=== PATIENT | female | born 1985 ===

== ENCOUNTER 2023-12-26 16:21 | Outpatient (REF) | payer BC, SELFPAY | END 2023-12-26 16:22 | disposition home or self-care (01) | LOC: NCHCN 16:21 | PROVIDERS: Visit Provider Family Medicine | DX: H60.8X2 Other otitis externa, left ear | CPT/HCPCS: 87070 ==

== ENCOUNTER 2024-02-22 15:22 | Outpatient (REF) | payer BC, SELFPAY ==
--- NOTE | 2024-02-22 12:30 | PAPFT_PTH ---
PATIENT: Basia Arceo LOC: [facility] U#:[id number] AGE/SX: 39/F ROOM: RE02/22/[address]: Margarita Bobo : 1985 BED: DIS: 02/22/2024 SPEC #: [id number] RECD: 02/22/24 16:54 STATUS: DEBORAH REQ #: [id number] OMER: 02/22/24 12:[address]: Margarita Bobo DEPT: [facility] Cytology RECD BY: Shahnaz Iyer Tissues: 1 - CX/ENDOCX FOR PAP SMEARS Procedures: PAP THIN PREP/[facility] Screening HPV DNA PROBE Comments: [id number] (HPV 16 & 18/45)
--- OUTSIDE RECORDS SUMMARY | 2024-02-22 15:25 | XMS_ITS | Continuity of Care Document ---
Author Organization [facility] Address [address] [place] [address] Assessment No assessment recorded. Plan of Treatment Reminders Order Date Submit Date Provider Last Modified By Organization Details Last Modified Time Details Appointments Annual Wellness Exam 40 2023 11:50A M Not available Not available Not available Annual Wellness Exam 40 2024 11:00A M Not available Not available Not available Lab gram stain - obtained in office [address] Laboratory (Registration ), [address] [place] [address] [place], [address], 01/03/2024 10:09:58 culture, ear 2023 024 [facility] (Registration ), [address] [place] [address] [place], [address], 01/01/2024 09:57:37 Referral None recorded. Procedures None recorded. Surgeries None recorded. Imaging None recorded. Medication Orders ofloxacin 0.3 % ear drops 2023 024 [id number], [address] [place] [address], [phone], 12/26/2023 09:19:27 Patient TargetsNo targets recorded. Patient Instructions Encounter Date Encounter Id Patient Instructions Last Modified By Organization Details Last Modified Time 12/26/2023 [id number] ofloxacin ear drops daily 5 days. Call if issues with affordability [email or web address] Not available 12/26/2023 09:20:11 Reason for Referral None Reported. Problems Name Status Onset Date Resolution Date Notes Provider Name and Address Organization Details Recorded Time Family history of breast cancer Active 09/19/[address], [facility] [address], [facility] 09/19/2023 12:07:07 Vegetarian diet Active 09/19/[address], [facility] [address], [facility] 09/19/2023 12:09:14 Cough Active 09/19/[address], [facility] [id number] [place] [address] 09/19/2023 15:41:18 Fatigue Active 09/19/[address], [facility] [id number] [place] [address] 09/19/2023 15:43:00 Otitis externa Active 12/17/[address], [facility] [id number] [place] [address] 12/17/2023 13:39:35 Problem Notes None recorded. Procedures Surgical History Date Name Laterality Status Provider Name and Address Organization Details Recorded Time 4 Cerumen Removal completed [address] Dr, [facility] [address], [facility] 12/11/2023 10:47:46 9 Date of Last Pap Smear completed Jodie Ballard RN null, [facility] 08/07/2023 13:57:55 Imaging Results None recorded. Procedure Notes None recorded. Medical Equipment None Reported. Allergies No known drug allergies Medications Name Sig Start Date Stop Date Status Note LastModified by Organization Details LastModified Time ofloxacin 0.3 % ear drops INSTILL 10 DROPS TO AFFECTED EAR DAILY active Not Available Not Available No t Available clotrimazol e 1 % topical solution RINSE EXTERNAL EAR; FILL EAR CANAL WITH SOLUTION AND PLUG WITH COTTON BALL. REPEAT DAILY UNTIL PAIN GONE 02/21 completed Not Available Not Available Not Available neomycin-po lymyxin-hyd rocort 3.5 mg-10,000 unit/mL-1 % ear drops,susp INSTILL 4 DROPS INTO THE AFFECTED EAR(S) THREE TIMES A DAY 02/21 completed Not Available Not Available Not Available Vitals Date Recorded Body height Body temperature Oxygen saturation Oxygen saturation in Arterial blood by Pulse oximetry Heart rate Body mass index (BMI) Body weight Systolic blood pressure Diastolic blood pressure Provider Name and Address Organization Details Last Updated DateTime 4 161.29 cm 97.6 [degF] 98 % 98 % 74 /min 23.9 kg/m2 06387.1 5 g 110 mm[Hg] 70 mm[Hg] PIERRE MELCHOR MA [facility] 4 09:03:38 Social History Question Answer Notes LastModified by Organizat ion Details LastModified Time Tobacco Smoking Status Never Smoker Jodie Ballard RN [facility], [facility] 09/19/2023 11:56:04 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 (Female Patients Only) No [email or web address] Information not available 02/22/2024 How Often Does Anyone, Including Family, Physically Hurt You? Never Information not available 09/19/2023 How Often Does Anyone, Including Family, Insult Or Talk Down To You? Never Information no t available 09/19/2023 How Often Does Anyone, Including Family, Threaten You With Harm? Never Information not available 09/19/2023 How Often Does Anyone, Including Family, Scream Or Curse At You? Never Information not available 09/19/2023 Within The Past 12 Months, You Worried That Your Food Would Run Out Before You Got Money To Buy More. Never True Information n ot available 09/19/2023 Within The Past 12 Months, The Food You Bought Just Didn't Last And You Didn't Have Money To Get More. Never True Information not available 09/19/2023 How Hard Is It For You To Pay For The Very Basics Like Food, Housing, Medical Care, And Heating? Would You Say It Is: Not Hard At All Information not available 09/19/2023 In The Past 12 Months, Has Lack Of Reliable Transportation Kept You From Medical Appointments, Meetings, Work Or From Getting Things Needed For Daily Living? No Information not available 09/19/2023 What Is Your Housing Situation Today? I Have Housing. Information not available 09/19/2023 How Often In The Past Year Have You Used Marijuana (including Smoking, Vaping, Dabbing, Or Edibles)? Never Information not available 09/19/2023 How Often In The Past Year Have You Used Prescription Medications That Were Not Prescribed To You? Never Information not available 09/19/2023 How Often In The Past Year Have You Taken Your Own Prescription Medication More Than The Way It Was Prescribed Or For Different Reasons Than Its Intended Purpose? Never Information not available 09/19/2023 How Often In The Past Year Have You Used Other Drugs (for Example, Heroin, Cocaine, Meth, Salvia, Inhalants)? Never Information not available 09/19/2023 Have You Ever Used IV Drugs? No Information not available 09/19/2023 Date Of Most Recent SBINS 09/19/2023 Information not available 09/19/2023 What Was The Date Of Your Most Recent Tobacco Screening? 02/22/2024 [email or web address] Information n ot available 02/22/2024 Has Tobacco Cessation Counseling Been Provided? Yes Information not available 09/19/2023 On What Date Was Tobacco Cessation Counseling Provided? 12/11/2023 [email or web address] Information not available 12/11/2023 Do You Or Have You Ever Used Any Other Forms Of Tobacco Or Nicotine? No Information not available 09/19/2023 Sex: Unknown Functional Status None recorded. Mental Status None recorded. Family History Relationship Description Onset Age of this Age Resolved Age Notes Mother Malignant tumor of breast 58 Brother Anemia Father Hypercholesterolemia Father Hypertensive disorder Medical History No medical history recorded. Gynecological History Statement/Question Response Date of Last Pap Smear 10/04/2018 Obstetrics History GPAL:G 0 P 0 0 0 0 Immunizations Vaccine Type Date Status Provider Name and Address Organization Details Recorded Time MMR 10/04/2018 completed Jodie Ballard RN null, [facility] 08/07/2023 13:58:27 Tdap 10/03/2017 completed Jodie Ballard RN null, [facility] 08/07/2023 13:58:52 SARS-COV-2 (COVID-19) vaccine, UNSPECIFIED 04/28/2023 completed Joide Ballard RN null, [facility] 09/18/2023 12:36:27 Past Encounters Encounter ID Performer Location Encounter Start Date Encounter Closed Date Diagnosis/Indication Diagnosis SNOMED-CT Code [id number] SOCO FAY [address] [address] 12/11/2023 10:08:27 12/11/2023 10:46:08 Impacted cerumen in left ear 181373937932810 1 [id number] JOSE SANTANA MD [address] [address] 12/17/2023 13:08:22 12/17/2023 13:39:56 Otitis externa [id number] JOSE SANTANA MD [address] [address] 12/26/2023 08:52:25 12/26/2023 09:23:35 Otitis externa [id number] Health Concerns Section Related Observation LastModified by Organization Detai ls LastModified Time None Recorded Concern Status LastModified by Organization Details LastModified Time None Recorded Payers Encounter Date Sequence Insurance Name Policy Number Policy Palacio Covered Member ID Palacio Member ID Guarantor Name 12/26/2023 1 [place] [employer] [place] Basia Arceo [id number] Basia Arceo Notes Date Note Type Note Provider Name and Address Organization Details Recorded Time 12/26/2023 text/html HPI Notes: Kayeелена nt here requesting follow-up for her recent diagnosis of left otitis externa. Is been 8 days, the Cortisporin otic drops do not seem to be helping much. States might get a little better a few days and but it is worse again. Still drainage, still painful. Still feels a bit full. No malodor anymore. No fever or chills JOSE SANTANA MD [address], [place], [address], [facility]. 12/26/2023 09:33:55 OBGyn Episode No OBEpisode recorded.
[2024-02-22 15:43] LABS: MCH 29.4 pg (27.0-33.0); MCHC 33.3 % (32.0-36.0); MCV 88 fL (80-95); MPV 10.1 fL (8.0-11.0); Platelet Count 328 10^3/uL (130-400); RBC 4.76 10^6/uL (3.93-5.22); RDW 11.8 % (11.7-14.6); RDW-SD 38.1 fL; WBC 6.58 10^3/uL (4.4-10.8)
[2024-02-22 16:39] LABS: ALT 24 U/L (14-59); AST 18 U/L (15-37); Albumin 4.3 g/dL (3.4-5.0); Alkaline Phosphatase 64 U/L (46-116); Anion Gap 7.9 mmol/L (3-11); BUN 7 mg/dL (7-18); Bilirubin, Total 0.54 mg/dL (0.2-1.0); CO2 31.1 mmol/L (21.0-32.0); CREATININE 0.8 mg/dL (0.55-1.02); Calcium 9.7 mg/dL (8.5-10.1); Chloride 102 mmol/L (98-107); Estimated GFR 96.66 (mL/min/1.73m2); Ferritin 32 ng/mL (8-252); Glucose 95 mg/dL (74-106); Potassium 4.6 mmol/L (3.5-5.1); Sodium 141 mmol/L (136-145); Total Protein 7.5 g/dL (6.4-8.2)
[2024-02-22 17:12] LABS: Iron 98 ug/dL (50-170); Total Iron Binding Capacity 353 ug/dL (250-450); Transferrin Sat 28 % (15-50)
== END 2024-02-22 15:23 | disposition home or self-care (01) ==
LOC: NCHCN 15:22
PROVIDERS: PCP Nurse Practitioner Family; Visit Provider Nurse Practitioner Family
DX: Z00.00 Encounter for general adult medical examination without abnormal findings (principal); Z71.3 Dietary counseling and surveillance
CPT/HCPCS: 80053; 85027; 88142; 82728; 83540; 83550; 87624